=== PATIENT | female | born 1975 | race African-American/Black ===

== ENCOUNTER 2020-11-22 13:53 | Emergency (ER) | payer BC, SELFPAY ==
--- NOTE | ~2020-11-22 | XR_ITS ---
EXAMINATION: XR foot LT min 3V EXAM DATE: 11/22/2020 14:18 INDICATION: dropped something on left foot 3 weeks ago, pain. Initial encounter. TECHNIQUE: Left foot dorsoplantar, lateral and oblique projections obtained and reviewed. There is n o prior study for comparison. FINDINGS: Left metatarsal bones unremarkable. There are no acute fractures or dislocations identifi ed. There is no subcutaneous gas. There is soft tissue swelling over the metatarsals dorsally. The re are no radiopaque foreign bodies. IMPRESSION: 1. XR foot LT min 3V exam without acute osseous findings. 2. Soft tissue swelling. Reviewed, dictated and finalized at location B.
[2020-11-22 14:00] VITALS: BP 141/73; PULSE 72; RESP 20; TEMP 36.4; O2SAT 100
--- NOTE | 2020-11-22 14:23 | ED.LOWEXIN ---
HPI - Extremity Injury (Lower) General Stated Complaint: left foot swelling Source: patient and RN notes reviewed Mode of arrival: ambulatory History of Present Illness HPI Narrative: This is a 45-year-old female with a presented to the urgent care with left foot pain status post trauma. According to patient she dropped a table on the affected foot about 3 weeks ago. She notes that occasionally it swells up. She notes that she has been elevating it and icing the affected area. She does have an appointment with her [facility] surgeon in a couple of weeks. She also has complaints about bruising to that affected leg. She will follow up with her primary care physician for that Related Data Allergies Allergy/AdvReac Type Severity Reaction Status Date / Time No Known Allergies Allergy Unverified 10/29/18 01:33 Review of Systems Review of Systems: A 14 organ system Review of Systems was performed and pertinent positives included in the HPI, otherwise remaining ROS is negative. [facility] Family History Family History (Updated 11/22/20 @ 14:23 by HERNAN Olsen-C) Other Family history non-contributory Exam Narrative: GENERAL: This is a well-nourished, well-developed patient, in no apparent distress. HEAD: normocephalic, atraumatic. EYES: PERRL. Sclera clear/white. Vision is grossly intact. EARS: External ears normal, auditory canals clear and without drainage, TMs normal without perforation. Hearing grossly intact. NOSE: External nose normal with no obvious nasal discharge, nares without redness, no rhinorrhea. THROAT: Mucous membranes moist, posterior pharynx clear. NECK: Neck supple, non-tender without lymphadenopathy, masses or thyromegaly. CARDIOVASCULAR: Regular rate and rhythm without murmurs, gallops, or rubs. RESPIRATORY: Clear to auscultation. Breath sounds equal bilaterally. No wheezes, rales, or rhonchi. GASTROINTESTINAL: Abdomen soft, non-tender, nondistended. Bowel sounds are active. No hepato-splenomegaly, or palpable masses. No guarding. SKIN: warm, intact with no suspicious lesions or rash, good texture and turgor. NEURO: awake, alert, and oriented to person, place and time. There were no obvious focal neurologic abnormalities. Steady gait EXTREMITIES: Normal range of motion. Slight edema and tenderness to the lateral side of the left foot.. No calf tenderness. Negative Homans sign bilaterally. BACK: Nontender without deformity or crepitance. No flank tenderness. Course Course Emergency Course: Patient will be discharged with instructions to rice, a prescription for Flexeril and ibuprofen Vital Signs Vital signs: Vital Signs Temperature 97.5 F L 11/22/20 14:00 Pulse Rate 72 11/22/20 14:00 Respiratory Rate 20 11/22/20 14:00 Blood Pressure 141/73 H 11/22/20 14:00 Pulse Oximetry 100 11/22/20 14:00 Temperature 97.5 F L 11/22/20 14:00 Pulse Rate 72 11/22/20 14:00 Respiratory Rate 20 11/22/20 14:00 Blood Pressure 141/73 H 11/22/20 14:00 Pulse Oximetry 100 11/22/20 14:00 MDM - Extremity Injury (Lower) Imaging Data Attestation: I personally reviewed and interpreted this imaging study as follows: Radiologist's impression: No fractures or dislocations Discharge Plan Discharge Clinical Impression: Sprain and strain Patient Disposition: Home, Self-Care Condition: Stable Instructions: Antibiotic Form, Sprain (ED) Additional Instructions: Ice to the area 15-20 minutes 4-6 times a day for two to three days Minimize activities that aggravate the condition Elevate above heart as much as possible to reduce swelling 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 You may take over the counter tylenol and ibuprofen as needed for pain -Use prescription pain medication for severe pain; caution it may cause drowsiness--Do not drink alcohol or drive with these medications. Also, caution each tablet contains 325 mg of Tyleno
== END 2020-11-22 14:47 | disposition home or self-care (01) ==
PROVIDERS: Emergency Provider Nurse Practitioner; PCP Internal Medicine Infectious Disease
DX: S93.602A Unspecified sprain of left foot, initial encounter (principal); S96.912A Strain of unspecified muscle and tendon at ankle and foot level, left foot, initial encounter; W20.8XXA Other cause of strike by thrown, projected or falling object, initial encounter
CPT/HCPCS: 73630; 99213; G0463

== ENCOUNTER 2022-02-05 09:16 | Emergency (ER) | payer BC, SELFPAY ==
--- NOTE | ~2022-02-05 | XR_ITS ---
XR foot LT min 3V DATE: 02/05/2022 10:07 INDICATION: Pain and swelling of great toe radiating to medial foot for 2 weeks. No injury. TECHNIQUE: 4 views COMPARISON: None FINDINGS: Mild plantar and posterior calcaneal enthesopathy. No fracture or dislocation, periosteal reaction or bone destruction or erosive change. IMPRESSION: Mild plantar and posterior calcaneal enthesopathy Reviewed, dictated and finalized at location A. L D RN
[2022-02-05 09:31] VITALS: BP 161/83; PULSE 79; RESP 17; TEMP 36.8; O2SAT 100
--- NOTE | 2022-02-05 10:41 | ED.LOWEXIN ---
HPI - Extremity Injury (Lower) General Chief Complaint: Extremity Injury, Lower Stated Complaint: L foot pain Time Seen by Provider: 02/05/22 10:27 Source: patient Mode of arrival: ambulatory Limitations: no limitations History of Present Illness HPI Narrative: Patient is a 47 y/o female who presents to the ED with c/o pain to her left first toe. Patient reports the pain has been intermittent but worsening over the last 2 weeks. She complains of pain in her first toe and directly over her first MTP joint. Has had difficulty ambulating due to pain. Has intermittently been taking ibuprofen. She has noticed toe seems slightly warm at times. Denies any wounds, fevers. Denies history of gout. Patient is on a thiazide diuretic for high blood pressure. No diabetes. No known injury. Related Data Home Medications Medication Instructions Recorded Confirmed amlodipine 10 mg tablet 11/22/20 hydrochlorothiazide 12.5 mg capsule 11/22/20 levothyroxine 125 mcg tablet 11/22/20 potassium chloride 20 mEq meq PO 11/22/20 tablet,extended release pravastatin 40 mg tablet 11/22/20 propranolol 40 mg tablet 11/22/20 Allergies Allergy/AdvReac Type Severity Reaction Status Date / Time No Known Allergies Allergy Unverified 10/29/18 01:33 Review of Systems Review of Systems: CONSTITUTIONAL: Denies fever, chills, or sweats. SKIN: Reports redness and warmth of left first toe. Denies wounds. MUSCULOSKELETAL: Reports pain to left first toe. NEUROLOGIC: Denies tingling, numbness, or weakness. All systems reviewed & are unremarkable except as noted in HPI and below PMFSH Past Medical History Medical History (Updated 02/05/22 @ 10:56 by Clarissa Harding PA-C) HLD (hyperlipidemia) HTN (hypertension) Hypothyroid Surgical History Surgical History (Updated 02/05/22 @ 10:56 by Clarissa Harding PA-C) History of delivery Family History Family History (Updated 11/22/20 @ 14:23 by MIRA Olsen) Other Family history non-contributory Social History Social History (Updated 02/05/22 @ 10:56 by Clarissa Harding PA-C) Smoking status: Never smoker Exam Narrative: GENERAL: Well appearing, obese, non-toxic, in no acute distress. HEAD: Normocephalic, atraumatic. NECK: Supple. No adenopathy, no masses. RESPIRATORY: Airway patent, respirations nonlabored. CARDIOVASCULAR: Regular rate and rhythm without murmurs, rubs, or gallops. Pedal pulses 2+ and equal bilaterally. MUSCULOSKELETAL: Limited range of motion of left first toe flexion/extension due to discomfort over 1st MTP joint. Significant tenderness to palpation over first MTP joint. Mild warmth and erythema over joint on dorsal and plantar surfaces. No warmth elsewhere on foot. No wounds. SKIN: Warm, dry, normal color. No rashes. NEURO: A&O X3. Speech clear. Cranial nerves II-XII grossly intact. No ataxic movements. PSYCHIATRIC: Appropriate mood and affect. Normal interaction. Course Vital Signs Vital signs: Vital Signs Temperature 98.2 F 02/05/22 09:31 Pulse Rate 79 02/05/22 09:31 Respiratory Rate 17 02/05/22 09:31 Blood Pressure 161/83 H 02/05/22 09:31 Pulse Oximetry 100 02/05/22 09:31 Oxygen Delivery Room Air 02/05/22 09:31 Temperature 98.2 F 02/05/22 09:31 Pulse Rate 79 02/05/22 09:31 Respiratory Rate 17 02/05/22 09:31 Blood Pressure 161/83 H 02/05/22 09:31 Pulse Oximetry 100 02/05/22 09:31 Oxygen Delivery Room Air 02/05/22 09:31 MDM - Extremity Injury (Lower) MDM Narrative Medical decision making narrative: Patient presented to ED with 2-week history of left first toe pain, redness. Vital stable upon arrival. Afebrile. X-ray negative for any acute abnormality. No wounds seen on exam. Exam very much consistent with gout with point tenderness over left first MTP joint, tenderness with any movement, mild warmth, erythema. Will treat with indomethacin. Patient given p
[2022-02-05] MEDS: COLCHICINE 0.6 MG TABLET 1.2 MG PO (11:21)
[2022-02-05] MEDS: INDOMETHACIN 25 MG CAPSULE 50 MG PO (11:21)
== END 2022-02-05 11:30 | disposition home or self-care (01) ==
PROVIDERS: Emergency Provider Emergency Medicine; PCP Internal Medicine Infectious Disease
DX: M10.9 Gout, unspecified (principal); I10 Essential (primary) hypertension; E03.9 Hypothyroidism, unspecified; E78.5 Hyperlipidemia, unspecified
CPT/HCPCS: 73630; 99283; A9270